=== PATIENT | female | born 1950 | race African-American/Black ===

== ENCOUNTER 2022-06-07 20:17 | Emergency (ER) | payer MEDICARE, MEDICAID ==
[~2022-06-07] VITALS: Ht 157.5 cm; Wt 83.9 kg
[2022-06-07] VITALS (10 sets, daily range): BP systolic 136–159; BP diastolic 66–92
[~2022-06-07 20:17] MED LIST: FLEXERIL5 M1 PO; INDOCIN25 MG PO; METFORMIN500 MG PO; PAROXETINE25 MG PO; PLAVIX75 MG PO; PRAVACHOL40 MG PO; PROAIR HFA IN; ULTRAM50 M1 PO; VOLTAREN - GENE75 MG PO; [UNRECOGNIZED DRUG - REMARK]
[2022-06-07 21:09] LABS: BASO% 0.6 % (0-3); EOS% 1.9 % (0-8); HEMATOCRIT 38.6 % (37.0-47.0); HEMOGLOBIN 11.8 g/dl (12.0-16.0); IMMATURE GRANULOCYTES 0.6 % (0.0-5.0); LYMPH% 47.8 % (15-41); MEAN CELL VOLUME 91.7 fL CALC (80.0-100.0); MEAN CORPUSCULAR HGB CONC 30.6 g/dL CAL (32.0-36.0); NEUT# 3.06 thou/uL (2.00-7.15); NEUT% 39.1 % (42-76); RED BLOOD COUNT 4.21 mill/uL (4.20-5.60); RED CELL DISTRI WIDTH 14.4 % (11.5-15.5)
[2022-06-07 21:14] LABS: ALBUMIN 4.4 g/dL (3.2-5.0); ALKALINE PHOSPHATASE 97 u/l (38-126); ANION GAP 12 (6-22 (CALC)); BILIRUBIN, TOTAL 0.2 mg/dL (0.02-1.3); BUN 15 mg/dL (8-23); BUN/CREATININE RATIO 16 (12-20 (CALC)); CARBON DIOXIDE 24 mmol/l (22-30); CHLORIDE 107 mmol/l (95-108); CREATININE 0.9 mg/dL (0.5-1.0); GFR FOR AFR.AMER. > 60 ML/MIN (>=60 (CALC)); GFR OTHER RACES > 60 ML/MIN (>=60 (CALC)); POTASSIUM 4.1 mmol/l (3.5-5.1); SGOT/AST 25 u/l (9-36); SODIUM 139 mmol/l (137-146); TOTAL PROTEIN 8.4 g/dL (6.3-8.2)
[2022-06-07 22:45] LABS: URINE BILIRUBIN - DIPSTICK NEGATIVE (NEGATIVE); URINE BLOOD DIPSTICK NEGATIVE (NEGATIVE); URINE COLOR YELLOW; URINE GLUCOSE - DIPSTICK NEGATIVE (NEGATIVE); URINE KETONE TRACE mg/dL (NEGATIVE); URINE LEUK ESTERASE NEGATIVE (NEGATIVE); URINE PROTEIN - DIPSTICK NEGATIVE (NEG-TRACE); URINE SPECIFIC GRAVITY 1.025
[2022-06-07 22:47] LABS: URINE NITRITE - DIPSTICK NEGATIVE (Negative)
[2022-06-07] MEDS ORDERED: ONDANSETRON4 MG PO (23:17)
[2022-06-07] MEDS ORDERED: MEDDOSEPAK PO (23:17)
[2022-06-07] MEDS ORDERED: MECLIZINE25 MG PO (23:17)
== END 2022-06-07 23:38 | disposition home or self-care (01) ==
LOC: ED 20:17
PROVIDERS: Emergency Medicine
DX: R42 Dizziness and giddiness (principal); R07.89 Other chest pain; I10 Essential (primary) hypertension; E11.9 Type 2 diabetes mellitus without complications; Z79.84 Long term (current) use of oral hypoglycemic drugs

== ENCOUNTER 2022-06-08 08:35 | Inpatient (IN) | payer MEDICARE, MEDICAID ==
[~2022-06-08] VITALS: Ht 152.4 cm; Wt 81.0 kg
[2022-06-08] VITALS (16 sets, daily range): BP systolic 116–173; BP diastolic 42–92
[~2022-06-08 08:35] MED LIST changes: +MECLIZINE25 MG PO; +MEDDOSEPAK PO; +ONDANSETRON4 MG PO
[2022-06-08 09:37] LABS: BASO% 0.3 % (0-3); HEMATOCRIT 37.4 % (37.0-47.0); HEMOGLOBIN 11.7 g/dl (12.0-16.0); IMMATURE GRANULOCYTES 0.7 % (0.0-5.0); LYMPH% 22.3 % (15-41); MEAN CELL VOLUME 91.7 fL CALC (80.0-100.0); MEAN CORPUSCULAR HGB 28.7 pG CALC (26.0-32.0); MEAN CORPUSCULAR HGB CONC 31.3 g/dL CAL (32.0-36.0); MONO% 1.6 % (2-13); NEUT# 5.31 thou/uL (2.00-7.15); NEUT% 75.1 % (42-76); RED BLOOD COUNT 4.08 mill/uL (4.20-5.60); RED CELL DISTRI WIDTH 14.4 % (11.5-15.5)
[2022-06-08 09:48] LABS: ALBUMIN 4.2 g/dL (3.2-5.0); ALKALINE PHOSPHATASE 94 u/l (38-126); ANION GAP 13 (6-22 (CALC)); BILIRUBIN, TOTAL 0.2 mg/dL (0.02-1.3); BUN 16 mg/dL (8-23); BUN/CREATININE RATIO 24 (12-20 (CALC)); CHLORIDE 109 mmol/l (95-108); CREATININE 0.7 mg/dL (0.5-1.0); GFR FOR AFR.AMER. > 60 ML/MIN (>=60 (CALC)); GFR OTHER RACES > 60 ML/MIN (>=60 (CALC)); POTASSIUM 4.6 mmol/l (3.5-5.1); SGOT/AST 28 u/l (9-36); SODIUM 136 mmol/l (137-146); TOTAL PROTEIN 7.7 g/dL (6.3-8.2)
[2022-06-08 10:01] LABS: CARBON DIOXIDE 19 mmol/l (22-30)
[2022-06-09 04:32] VITALS: BP 147/76
[2022-06-09 05:38] LABS: BASO% 0.2 % (0-3); EOS% 0.4 % (0-8); HEMATOCRIT 35.9 % (37.0-47.0); HEMOGLOBIN 11.2 g/dl (12.0-16.0); IMMATURE GRANULOCYTES 0.6 % (0.0-5.0); MEAN CELL VOLUME 91.6 fL CALC (80.0-100.0); MEAN CORPUSCULAR HGB 28.6 pG CALC (26.0-32.0); MEAN CORPUSCULAR HGB CONC 31.2 g/dL CAL (32.0-36.0); MONO% 7.6 % (2-13); NEUT# 7.31 thou/uL (2.00-7.15); NEUT% 63.2 % (42-76); RED BLOOD COUNT 3.92 mill/uL (4.20-5.60); RED CELL DISTRI WIDTH 14.5 % (11.5-15.5)
[2022-06-09 05:57] LABS: ALBUMIN 3.9 g/dL (3.2-5.0); ALKALINE PHOSPHATASE 91 u/l (38-126); BUN 12 mg/dL (8-23); BUN/CREATININE RATIO 15 (12-20 (CALC)); CHLORIDE 107 mmol/l (95-108); CREATININE 0.8 mg/dL (0.5-1.0); GFR FOR AFR.AMER. > 60 ML/MIN (>=60 (CALC)); GFR OTHER RACES > 60 ML/MIN (>=60 (CALC)); POTASSIUM 4.1 mmol/l (3.5-5.1); SGOT/AST 25 u/l (9-36); SODIUM 141 mmol/l (137-146); TOTAL PROTEIN 7.5 g/dL (6.3-8.2)
[2022-06-09 06:00] LABS: ANION GAP 10 (6-22 (CALC)); BILIRUBIN, TOTAL 0.1 mg/dL (0.02-1.3); CARBON DIOXIDE 28 mmol/l (22-30)
[2022-06-09 06:11] VITALS: BP 171/82
[2022-06-09 10:34] VITALS: BP 145/70
[2022-06-09 10:42] LABS: URINE BILIRUBIN - DIPSTICK NEGATIVE (NEGATIVE); URINE BLOOD DIPSTICK NEGATIVE (NEGATIVE); URINE COLOR YELLOW; URINE GLUCOSE - DIPSTICK NEGATIVE (NEGATIVE); URINE KETONE NEGATIVE (NEGATIVE); URINE LEUK ESTERASE NEGATIVE (NEGATIVE); URINE PROTEIN - DIPSTICK NEGATIVE (NEG-TRACE); URINE UROBILINOGEN - DIPSTICK 0.2 E.U./dL (0.2)
[2022-06-09 10:43] LABS: URINE NITRITE - DIPSTICK NEGATIVE (Negative)
[2022-06-09 12:06] LABS: CHOLESTEROL HDL RATIO 3.5 (<4.4 (CALC))
[2022-06-09 18:47] VITALS: BP 168/91
[2022-06-09 23:57] VITALS: BP 147/79
[2022-06-10 04:23] VITALS: BP 136/67
[2022-06-10 05:43] LABS: BASO% 0.5 % (0-3); EOS% 1.4 % (0-8); HEMATOCRIT 37.3 % (37.0-47.0); HEMOGLOBIN 11.6 g/dl (12.0-16.0); IMMATURE GRANULOCYTES 0.5 % (0.0-5.0); LYMPH% 41.8 % (15-41); MEAN CELL VOLUME 91.6 fL CALC (80.0-100.0); MEAN CORPUSCULAR HGB 28.5 pG CALC (26.0-32.0); MEAN CORPUSCULAR HGB CONC 31.1 g/dL CAL (32.0-36.0); NEUT# 3.81 thou/uL (2.00-7.15); NEUT% 47.8 % (42-76); RED BLOOD COUNT 4.07 mill/uL (4.20-5.60); RED CELL DISTRI WIDTH 14.5 % (11.5-15.5)
[2022-06-10 05:58] LABS: ALBUMIN 3.9 g/dL (3.2-5.0); ALKALINE PHOSPHATASE 94 u/l (38-126); ANION GAP 11 (6-22 (CALC)); BUN 12 mg/dL (8-23); BUN/CREATININE RATIO 15 (12-20 (CALC)); CARBON DIOXIDE 25 mmol/l (22-30); CHLORIDE 108 mmol/l (95-108); CREATININE 0.8 mg/dL (0.5-1.0); GFR FOR AFR.AMER. > 60 ML/MIN (>=60 (CALC)); GFR OTHER RACES > 60 ML/MIN (>=60 (CALC)); POTASSIUM 3.9 mmol/l (3.5-5.1); SGOT/AST 22 u/l (9-36); SODIUM 140 mmol/l (137-146); TOTAL PROTEIN 7.5 g/dL (6.3-8.2)
[2022-06-10 06:03] VITALS: BP 128/67
[2022-06-10 06:05] LABS: BILIRUBIN, TOTAL 0.2 mg/dL (0.02-1.3)
[2022-06-10 10:34] VITALS: BP 140/63
[2022-06-10 15:25] VITALS: BP 138/60
[2022-06-10 19:05] VITALS: BP 146/79
[2022-06-11] VITALS (39 sets, daily range): BP systolic 119–153; BP diastolic 57–85
[2022-06-11 06:06] LABS: BASO% 0.5 % (0-3); EOS% 0.9 % (0-8); HEMATOCRIT 37.6 % (37.0-47.0); HEMOGLOBIN 11.8 g/dl (12.0-16.0); IMMATURE GRANULOCYTES 0.3 % (0.0-5.0); LYMPH% 34.3 % (15-41); MEAN CELL VOLUME 91.7 fL CALC (80.0-100.0); MEAN CORPUSCULAR HGB 28.8 pG CALC (26.0-32.0); MEAN CORPUSCULAR HGB CONC 31.4 g/dL CAL (32.0-36.0); MONO% 8.4 % (2-13); NEUT# 4.86 thou/uL (2.00-7.15); NEUT% 55.6 % (42-76); RED BLOOD COUNT 4.1 mill/uL (4.20-5.60); RED CELL DISTRI WIDTH 14.5 % (11.5-15.5)
[2022-06-11 06:18] LABS: ALKALINE PHOSPHATASE 91 u/l (38-126); ANION GAP 11 (6-22 (CALC)); BILIRUBIN, TOTAL 0.2 mg/dL (0.02-1.3); BUN 13 mg/dL (8-23); BUN/CREATININE RATIO 15 (12-20 (CALC)); CARBON DIOXIDE 26 mmol/l (22-30); CHLORIDE 105 mmol/l (95-108); CREATININE 0.9 mg/dL (0.5-1.0); GFR FOR AFR.AMER. > 60 ML/MIN (>=60 (CALC)); GFR OTHER RACES > 60 ML/MIN (>=60 (CALC)); POTASSIUM 4.2 mmol/l (3.5-5.1); SGOT/AST 25 u/l (9-36); SODIUM 138 mmol/l (137-146); TOTAL PROTEIN 7.6 g/dL (6.3-8.2)
[2022-06-12] VITALS (43 sets, daily range): BP systolic 119–165; BP diastolic 49–97
[2022-06-12 05:49] LABS: BASO% 0.5 % (0-3); EOS% 1.1 % (0-8); HEMATOCRIT 38.9 % (37.0-47.0); HEMOGLOBIN 12.2 g/dl (12.0-16.0); IMMATURE GRANULOCYTES 0.5 % (0.0-5.0); LYMPH% 29.7 % (15-41); MEAN CELL VOLUME 91.5 fL CALC (80.0-100.0); MEAN CORPUSCULAR HGB 28.7 pG CALC (26.0-32.0); MEAN CORPUSCULAR HGB CONC 31.4 g/dL CAL (32.0-36.0); MONO% 7.7 % (2-13); NEUT# 5.79 thou/uL (2.00-7.15); NEUT% 60.5 % (42-76); RED BLOOD COUNT 4.25 mill/uL (4.20-5.60); RED CELL DISTRI WIDTH 14.4 % (11.5-15.5)
[2022-06-12 06:13] LABS: ALBUMIN 4.1 g/dL (3.2-5.0); ALKALINE PHOSPHATASE 94 u/l (38-126); ANION GAP 12 (6-22 (CALC)); BUN 14 mg/dL (8-23); BUN/CREATININE RATIO 15 (12-20 (CALC)); CARBON DIOXIDE 27 mmol/l (22-30); CHLORIDE 104 mmol/l (95-108); CREATININE 0.9 mg/dL (0.5-1.0); GFR FOR AFR.AMER. > 60 ML/MIN (>=60 (CALC)); GFR OTHER RACES > 60 ML/MIN (>=60 (CALC)); POTASSIUM 4.7 mmol/l (3.5-5.1); SGOT/AST 20 u/l (9-36); SODIUM 138 mmol/l (137-146); TOTAL PROTEIN 7.4 g/dL (6.3-8.2)
[2022-06-12 06:14] LABS: BILIRUBIN, TOTAL 0.3 mg/dL (0.02-1.3)
[2022-06-13] VITALS (11 sets, daily range): BP systolic 122–143; BP diastolic 59–80
[2022-06-13 05:42] LABS: HEMATOCRIT 37.1 % (37.0-47.0); HEMOGLOBIN 11.7 g/dl (12.0-16.0); MEAN CELL VOLUME 91.4 fL CALC (80.0-100.0); MEAN CORPUSCULAR HGB 28.8 pG CALC (26.0-32.0); MEAN CORPUSCULAR HGB CONC 31.5 g/dL CAL (32.0-36.0); RED BLOOD COUNT 4.06 mill/uL (4.20-5.60); RED CELL DISTRI WIDTH 14.3 % (11.5-15.5)
[2022-06-13 05:49] LABS: ALBUMIN 4.2 g/dL (3.2-5.0); ALKALINE PHOSPHATASE 89 u/l (38-126); ANION GAP 11 (6-22 (CALC)); BILIRUBIN, TOTAL 0.3 mg/dL (0.02-1.3); BUN 14 mg/dL (8-23); BUN/CREATININE RATIO 16 (12-20 (CALC)); CARBON DIOXIDE 26 mmol/l (22-30); CHLORIDE 105 mmol/l (95-108); CREATININE 0.9 mg/dL (0.5-1.0); GFR FOR AFR.AMER. > 60 ML/MIN (>=60 (CALC)); GFR OTHER RACES > 60 ML/MIN (>=60 (CALC)); MAGNESIUM 2.1 mg/dL (1.6-2.3); POTASSIUM 4.1 mmol/l (3.5-5.1); SGOT/AST 22 u/l (9-36); SODIUM 138 mmol/l (137-146); TOTAL PROTEIN 7.9 g/dL (6.3-8.2)
[2022-06-14 04:00] VITALS: BP 119/70
[2022-06-14 04:44] VITALS: BP 119/70
[2022-06-14 05:20] LABS: BASO% 0.5 % (0-3); EOS% 1.7 % (0-8); HEMATOCRIT 39.2 % (37.0-47.0); HEMOGLOBIN 12.4 g/dl (12.0-16.0); IMMATURE GRANULOCYTES 0.6 % (0.0-5.0); LYMPH% 35.9 % (15-41); MEAN CELL VOLUME 91.8 fL CALC (80.0-100.0); MEAN CORPUSCULAR HGB CONC 31.6 g/dL CAL (32.0-36.0); MONO% 8.6 % (2-13); NEUT# 4.27 thou/uL (2.00-7.15); NEUT% 52.7 % (42-76); RED BLOOD COUNT 4.27 mill/uL (4.20-5.60); RED CELL DISTRI WIDTH 14.4 % (11.5-15.5)
[2022-06-14 05:51] LABS: ALBUMIN 4.3 g/dL (3.2-5.0); ALKALINE PHOSPHATASE 95 u/l (38-126); ANION GAP 11 (6-22 (CALC)); BILIRUBIN, TOTAL 0.3 mg/dL (0.02-1.3); BUN 14 mg/dL (8-23); BUN/CREATININE RATIO 17 (12-20 (CALC)); CARBON DIOXIDE 28 mmol/l (22-30); CHLORIDE 103 mmol/l (95-108); CREATININE 0.8 mg/dL (0.5-1.0); GFR FOR AFR.AMER. > 60 ML/MIN (>=60 (CALC)); GFR OTHER RACES > 60 ML/MIN (>=60 (CALC)); POTASSIUM 3.9 mmol/l (3.5-5.1); SGOT/AST 22 u/l (9-36); SODIUM 138 mmol/l (137-146); TOTAL PROTEIN 8.2 g/dL (6.3-8.2)
[2022-06-14 06:43] VITALS: BP 118/67
[2022-06-14 08:44] VITALS: BP 120/78
[2022-06-14 11:35] VITALS: BP 124/73
[2022-06-14 18:35] VITALS: BP 150/74
[2022-06-15 00:09] VITALS: BP 137/75
[2022-06-15 04:19] VITALS: BP 131/70
[2022-06-15 05:12] LABS: BASO% 0.8 % (0-3); EOS% 1.8 % (0-8); HEMOGLOBIN 12.5 g/dl (12.0-16.0); MEAN CELL VOLUME 92.6 fL CALC (80.0-100.0); MEAN CORPUSCULAR HGB 28.9 pG CALC (26.0-32.0); MEAN CORPUSCULAR HGB CONC 31.3 g/dL CAL (32.0-36.0); MONO% 9.8 % (2-13); NEUT# 4.4 thou/uL (2.00-7.15); NEUT% 49.6 % (42-76); RED BLOOD COUNT 4.32 mill/uL (4.20-5.60); RED CELL DISTRI WIDTH 14.5 % (11.5-15.5)
[2022-06-15 05:37] LABS: ALBUMIN 4.2 g/dL (3.2-5.0); ALKALINE PHOSPHATASE 95 u/l (38-126); ANION GAP 11 (6-22 (CALC)); BILIRUBIN, TOTAL 0.2 mg/dL (0.02-1.3); BUN 16 mg/dL (8-23); BUN/CREATININE RATIO 18 (12-20 (CALC)); CARBON DIOXIDE 29 mmol/l (22-30); CHLORIDE 103 mmol/l (95-108); CREATININE 0.9 mg/dL (0.5-1.0); GFR FOR AFR.AMER. > 60 ML/MIN (>=60 (CALC)); GFR OTHER RACES > 60 ML/MIN (>=60 (CALC)); POTASSIUM 4.4 mmol/l (3.5-5.1); SGOT/AST 28 u/l (9-36); SODIUM 139 mmol/l (137-146)
[2022-06-15 06:38] VITALS: BP 134/74
[2022-06-15] MEDS ORDERED: ADLT ASA LOW81 MG PO (09:53)
[2022-06-15] MEDS ORDERED: ONDANSETRON4 MG PO (09:53)
[2022-06-15] MEDS ORDERED: MECLIZINE25 MG PO (09:53)
[2022-06-15] MEDS ORDERED: AMOX/K CLAV875 M1 PO (09:54)
[2022-06-15 10:00] VITALS: BP 125/79
== END 2022-06-15 11:41 | disposition home health service (06) | DRG 65 ==
LOC: ED 08:35 → ED-I 12:20 → ED 12:36 → MS2 12:37 → ICU 06-11 14:20 → MS2 06-13 11:20
PROVIDERS: Family Medicine; Nurse Practitioner Family; Psychiatry & Neurology Neurology; ADMIT Internal Medicine; ATTEND Internal Medicine
DX: I63.341 Cerebral infarction due to thrombosis of right cerebellar artery (principal); G81.91 Hemiplegia, unspecified affecting right dominant side; R42 Dizziness and giddiness; R26.0 Ataxic gait; H55.09 Other forms of nystagmus; R29.701 NIHSS score 1; G93.89 Other specified disorders of brain; R10.84 Generalized abdominal pain; I10 Essential (primary) hypertension; E11.9 Type 2 diabetes mellitus without complications; E78.5 Hyperlipidemia, unspecified; J32.9 Chronic sinusitis, unspecified; Z79.84 Long term (current) use of oral hypoglycemic drugs; Z79.82 Long term (current) use of aspirin; Z79.02 Long term (current) use of antithrombotics/antiplatelets; Z20.822 Contact with and (suspected) exposure to COVID-19; R07.9 Chest pain, unspecified; R07.89 Other chest pain
CPT/HCPCS: Q9967

== ENCOUNTER 2024-02-15 08:52 | Observation (INO) | payer MEDICARE, MEDICAID ==
[2024-02-15] VITALS (30 sets, daily range): BP systolic 125–170; BP diastolic 61–138
[~2024-02-15] VITALS: Ht 157.5 cm; Wt 84.0 kg
[~2024-02-15 08:52] MED LIST changes: +ADLT ASA LOW81 MG PO; +AMOX/K CLAV875 M1 PO
--- NOTE | 2024-02-15 09:00 | NUR ---
PT BROUGHT BACK TO ER ROOM 14 VIA WHEELCHAIR, FAMILY AT SIDE
[2024-02-15] MEDS ORDERED: ASPIRIN 81 MG/TAB PO ONE (09:15)
[2024-02-15 09:32] LABS: BASO% 0.5 % (0-3); EOS% 2.4 % (0-8); HEMOGLOBIN 12.5 g/dl (12.0-16.0); IMMATURE GRANULOCYTES 0.3 % (0.0-5.0); LYMPH% 35.8 % (15-41); MEAN CELL VOLUME 94.7 fL CALC (80.0-100.0); MEAN CORPUSCULAR HGB 28.9 pG CALC (26.0-32.0); MEAN CORPUSCULAR HGB CONC 30.5 g/dL CAL (32.0-36.0); MONO% 6.8 % (2-13); NEUT# 3.18 thou/uL (2.00-7.15); NEUT% 54.2 % (42-76); RED BLOOD COUNT 4.33 mill/uL (4.20-5.60)
[2024-02-15 09:51] LABS: ALBUMIN 4.5 g/dL (3.2-5.0); CREATININE 0.9 mg/dL (0.5-1.0); POTASSIUM 4.1 mmol/l (3.5-5.1); TOTAL PROTEIN 8.2 g/dL (6.3-8.2)
[2024-02-15] MEDS ORDERED: NITROGLYCERIN 0.4 MG/TAB SL ONE (09:55)
[2024-02-15 09:56] LABS: BILIRUBIN, TOTAL 0.5 mg/dL (0.02-1.3)
--- NOTE | 2024-02-15 10:49 | NUR ---
RETURNED FROM RADIOLOGY VIA STRETCHER
--- NOTE | 2024-02-15 11:52 | NUR ---
Reassessment of patient completed. No distress noted. DENIES CHEST PAIN AT THIS TIME. VISITORS AT BEDSIDE.
--- NOTE | 2024-02-15 12:03 | NUR ---
MD AT BEDSIDE TO DISCUSS RESULTS AND POC
[2024-02-15] MEDS ORDERED: ACETAMINOPHEN 325 MG/TAB PO PRN (12:25)
[2024-02-15] MEDS ORDERED: MAGNESIUM HYDROXIDE 30 ML UDC PO PRN (12:25)
[2024-02-15] MEDS ORDERED: METFORMIN500 M2 PO (12:45)
[2024-02-15] MEDS ORDERED: VOLTAREN75 MG PO (12:46)
[2024-02-15] MEDS ORDERED: PEPCID20 MG PO (12:46)
[2024-02-15] MEDS ORDERED: ASPIRIN 81 LOW81 MG PO (12:47)
--- NOTE | 2024-02-15 13:33 | NUR ---
REPORT CALLED TO BENNIE TAMAYO
--- NOTE | 2024-02-15 13:45 | NUR ---
PT AMBULATED FROM STREACHER TO SCALE WITH 1X ASSIST FOR SAFETY. PT REPORTS TINGELING IN LOWER LEFT FOOR FROM PREVIOUS STROKE.
--- NOTE | 2024-02-15 13:46 | NUR ---
PT AOX4, RESPIRATIONS ARE EVEN AND UNLABORED, LUNGS ARE CLEAR, BOWEL SOUNDS ARE ACTIVE, PEDAL PULSES ARE PALPABLE TO TOUCH, PT DENIES PAIN AT THIS TIME.
--- NOTE | 2024-02-15 13:54 | NUR ---
TO ROOM 269 WITH PERSONAL BELONGINGS. TELE MONITOR #[address]
--- NOTE | 2024-02-15 13:55 | NUR ---
DR EDWARDS AT BEDSIDE DISCUSSING PLAN OF CARE WITH PT AT THIS TIME.
[2024-02-15] MEDS ORDERED: FAMOTIDINE 20 MG/TAB PO SCH (15:00)
[2024-02-15] MEDS ORDERED: METOPROLOL SUCCINATE 25 MG/TAB-TOPROL XL PO SCH (15:00)
--- NOTE | 2024-02-15 16:00 | NUR ---
PT RESTING COMFORTABLY AT THIS TIME, NO COMPLAINTS, NO CHAEST PAIN.
[2024-02-15] MEDS ORDERED: metFORMIN HYDROCHLORIDE 500 MG/TAB PO SCH (17:00)
--- NOTE | 2024-02-15 17:26 | NUR ---
CALL PLACED TO DR OSUNA TO NOTIFY OF PTS TROPONIN OF [phone]. TELEPHONE RODER TAKEN FOR PT TO TRANSFER TO ICU WITH HEPARIN DRIP.
--- NOTE | 2024-02-15 17:34 | NUR ---
DR OSUNA AT BEDSIDE DISCUSSING PLAN OF CARE WITH PT ABOUT MOVING TO ICU AND POSSIBLE TRANSFER.
[2024-02-15] MEDS ORDERED: Heparin SODIUM (Porcine) 5,000 UNITS/ML SDV IV ONE (17:40)
[2024-02-15] MEDS ORDERED: NITROGLYCERIN 0.4 MG/HR TD SCH (17:40)
[2024-02-15] MEDS ORDERED: Heparin SODIUM (Porcine) 500 ML IV PRN (17:40)
[2024-02-15 18:00] LABS: PROTHROMBIN TIME 10.4 SECONDS (9.0-12.5)
--- NOTE | 2024-02-15 18:00 | NUR ---
PT EXPERIENCING CHEST PAIN WE STARTED TO TRANSFER PT TO ICU, UPON ARRIVAL PT STATED ITS "NOT BAD WHEN WE STARTED TO LEAVE". REPORT GIVEN TO ELENO IN ICU.
--- NOTE | 2024-02-15 18:35 | NUR ---
PT ARRIVED TO ICU BY HOSPITAL BED AT 1800. PT BEING TRANSFERRED FOR NSTEMI. PT IS STABLE AT THIS TIME. NSR 70'S ON MONITOR. PT REPORTS CHEST PAIN 4/10, BUT STATES IMPROVED SINCE EARLIER. TRANSFER TO HIGHER LEVEL OF CARE AT ANOTHER FACILITY HAS BEEN INITIATED; PT IS AWARE. PT'S DAUGHTER AT BEDSIDE. PT DENIES ANY SOB OR OTHER COMPLAINTS. HEPARIN BOLUS GIVEN AND HEPARIN GTT STARTED PER MAY. PT EDUCATED ABOUT MEDICATIONS AND POC. PT IN STABLE CONDITION AT THIS TIME.
--- NOTE | 2024-02-15 19:45 | NUR ---
REPORT RECIEVED. ASSESSMENT COMPLETED. PT HAS NO COMPLAINT OF CHEST PAIN AT THIS TIME. HEPARIN GTT IS CURRENTLY @ 1,000 U/HR. WAITING FOR CALL BACK FROM [facility] TO SEE IF PT WILL BE ACCEPTED FOR TRANSFER THERE. V/S STABLE, HR IS NORM. SINUS 67, NO ST ELEVATION NOTED. CALL LIGHTIS IN REACH
--- NOTE | 2024-02-15 20:53 | NUR ---
[facility] CALLED BACK WITH ACCEPTANCE AND ROOM NUMBER, [id number] UNDER CARE OF DR. CELESTE STORM. [facility] CALLED, ETA 2300 FOR [employer]OMOTIVE [employer]. PT HAS NO COMPLAINTS AT THIS TIME, IS AWARE OF TRANSPORT AND NEED FOR TRANSPORT, DAUGHTER NOTIFIED
[2024-02-15] MEDS ORDERED: ATORVASTATIN CALCIUM 40 MG/TAB PO SCH (21:00)
[2024-02-15] MEDS ORDERED: ENOXAPARIN SODIUM 40 MG/0.4 ML SYR SC SCH (21:00)
[2024-02-15] MEDS ORDERED: PARoxetine 10 MG/TAB PO SCH (21:00)
--- NOTE | 2024-02-15 23:32 | NUR ---
[facility] TRANSPORT LEFT W/ PT @ APPROX 2315. REPORT CALLED TO NURSE SUE @ [facility]. V/S WERE STABLE, PT HAD NO COMPLAINTS.
[2024-02-16] MEDS ORDERED: ASPIRIN EC 81 MG/TAB PO SCH (09:00)
== END 2024-02-15 23:15 | disposition short-term general hospital (02) ==
LOC: ED 08:52 → ED-I 11:57 → ED 12:11 → MS2 12:12 → ICU 18:00
PROVIDERS: Family Medicine; ADMIT Internal Medicine; ATTEND Internal Medicine
DX: I21.4 Non-ST elevation (NSTEMI) myocardial infarction (principal); I10 Essential (primary) hypertension; E11.9 Type 2 diabetes mellitus without complications; E78.5 Hyperlipidemia, unspecified; J45.909 Unspecified asthma, uncomplicated; Z86.73 Personal history of transient ischemic attack (TIA), and cerebral infarction without residual deficits
CPT/HCPCS: G0378; J1644